=== PATIENT | female | born 2000 | race Caucasian/White ===

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

== ENCOUNTER 2023-08-27 02:10 | Emergency (ER) | payer OTHER ==
[2023-08-27 02:19] VITALS: BP 124/79; PULSE 82; RESP 18; TEMP 99; BMI 22.4
[2023-08-27] MEDS ORDERED: predniSONE 20 MG TABLET (UD) ONE (02:51)
[2023-08-27] MEDS: predniSONE 20 MG TABLET (UD) PO ONE (02:52)
[2023-08-27 03:20] LABS: THROAT:GRP A STREP NOT DETECTED (NOTDETECTED)
== END 2023-08-27 03:33 | disposition home or self-care (01) ==
LOC: JER 02:10
DX: J02.9 Acute pharyngitis, unspecified (principal); R07.0 Pain in throat; Z20.822 Contact with and (suspected) exposure to COVID-19
CPT/HCPCS: 0241U-QW; 87070; 87651; 99283-25